=== PATIENT | female | born 1970 | race Caucasian/White ===

== ENCOUNTER → 2019-11-01 | Outpatient (CLI) | payer OTHER ==
[~2019-11-01] MED LIST: OMEP-218 PO; PROAAER10 INH; SIMV20TA22 PO
== END ==
LOC: M LABSMTC 10:15
PROVIDERS: ATTEND Anesthesiology
DX: Z11.59 Encounter for screening for other viral diseases (principal)

== ENCOUNTER 2019-11-04 11:01 | Day surgery (SDC) | payer OTHER ==
[~2019-11-04] VITALS: Ht 162.6 cm; Wt 72.6 kg
[~2019-11-04 11:01] MED LIST changes: +NS 1,000 ML IV SCH
[2019-11-04] MEDS ORDERED: propofoL 200 MG/20 ML VIAL As Ordered ONE (11:19)
[2019-11-04] MEDS ORDERED: fentaNYL 100 MCG/2 ML INJECTION (J3010) As Ordered ONE (11:19)
[2019-11-04] MEDS ORDERED: LIDOCAINE 2% 100MG/5ML SDV (FOR ANES.) As Ordered ONE (11:19)
--- NOTE | 2019-11-04 11:42 | ROOR ---
Patient Name: Jahaira Mark Procedure Date: 11/04/2019 11:29 AM Date of : 1970 Age: 49 Room: [facility] Gender: Female Note Status: Finalized Procedure: Upper GI endoscopy Indications: Iron deficiency anemia, Heartburn Providers: Juan MARQUEZ MD Referring MD: SHYAM KEITH MD Requesting Provider: Medicines: Monitored Anesthesia Care Complications: No immediate complications. Procedure: Pre-Anesthesia Assessment: - The heart rate, respiratory rate, oxygen saturations, blood pressure, adequacy of pulmonary ventilation, and response to care were monitored throughout the procedure. The Endoscope was introduced through the mouth, and advanced to the second part of duodenum. The upper GI endoscopy was accomplished without difficulty. The patient tolerated the procedure well. Findings: Non-severe esophagitis was found at the gastroesophageal junction. Biopsies were taken with a cold forceps for histology. The exam of the esophagus was otherwise normal. The entire examined stomach was normal. The examined duodenum was normal. Biopsies for histology were taken with a cold forceps for evaluation of celiac disease. Impression: - Non-severe esophagitis. Biopsied. - Normal stomach. - Normal examined duodenum. Biopsied. Recommendation: - Continue present medications. - Follow an antireflux regimen. - Telephone endoscopist for pathology results in 2 weeks. Juan Marquez MD Juan MARQUEZ MD 11/04/2019 11:42:36 AM Electronically signed by Juan MARQUEZ MD Number of Addenda: 0 Note Initiated On: 11/04/2019 11:29 AM Estimated Blood Loss: Estimated blood loss: none.
--- NOTE | 2019-11-04 12:10 | ROOR ---
Patient Name: Jahaira Mark Procedure Date: 11/04/2019 11:29 AM Date of : 1970 Age: 49 Room: [facility] Gender: Female Note Status: Finalized Procedure: Colonoscopy Indications: Iron deficiency anemia Providers: Juan MARQUEZ MD Referring MD: SHYAM KEITH MD Requesting Provider: Medicines: Monitored Anesthesia Care Complications: No immediate complications. Procedure: Pre-Anesthesia Assessment: - The heart rate, respiratory rate, oxygen saturations, blood pressure, adequacy of pulmonary ventilation, and response to care were monitored throughout the procedure. The Colonoscope was introduced through the anus and advanced to 10 cm into the ileum. The colonoscopy was performed without difficulty. The patient tolerated the procedure well. The quality of the bowel preparation was good. Findings: The perianal and digital rectal examinations were normal. A diminutive polyp was found in the sigmoid colon. The polyp was sessile. The polyp was removed with a cold snare. Resection and retrieval were complete. Small Internal Hemorrhoids. The exam was otherwise without abnormality on direct and retroflexion views. The terminal ileum appeared normal. Impression: - One diminutive polyp in the sigmoid colon, removed with a cold snare. Resected and retrieved. - A few scattered sigmoid and descending colon diverticula. (minimal diverticulosis) - Small Internal Hemorrhoids. - The colon examination was otherwise normal on direct and retroflexion views. - The examined portion of the ileum was normal. Recommendation: - Repeat colonoscopy in 5 years for surveillance. - Telephone endoscopist for pathology results in 2 weeks. Juan Marquez MD Juan MARQUEZ MD 11/04/2019 12:09:57 PM Electronically signed by Juan MARQUEZ MD Number of Addenda: 0 Note Initiated On: 11/04/2019 11:29 AM Estimated Blood Loss: Estimated blood loss: none.
[2019-11-04 12:25] VITALS: BP 122/75
== END 2019-11-04 13:05 | disposition home or self-care (01) ==
LOC: M OPP 11:01
PROVIDERS: ATTEND Internal Medicine Gastroenterology
DX: K63.5 Polyp of colon (principal); D50.9 Iron deficiency anemia, unspecified; K20.9 Esophagitis, unspecified; R12 Heartburn; Z79.899 Other long term (current) drug therapy
CPT/HCPCS: 43239; 45385; 88305; J3010

== ENCOUNTER → 2021-11-03 | Outpatient (CLI) | payer OTHER ==
[~2021-11-03] MED LIST changes: +METF500T13 PO; -NS 1,000 ML IV SCH; +OMEP-173 PO; -OMEP-218 PO; +SEMA2.4P SQ
== END ==
LOC: M LABSMTC 09:07
PROVIDERS: ATTEND Anesthesiology
DX: Z01.812 Encounter for preprocedural laboratory examination (principal); Z20.822 Contact with and (suspected) exposure to COVID-19

== ENCOUNTER → 2021-12-01 | Outpatient (CLI) | payer OTHER | LOC: M LABSMTC 09:12 | PROVIDERS: ATTEND Anesthesiology | DX: Z01.818 Encounter for other preprocedural examination (principal); Z11.52 Encounter for screening for COVID-19 ==

== ENCOUNTER 2021-12-06 08:46 | Day surgery (SDC) | payer OTHER ==
[~2021-12-06] VITALS: Ht 162.6 cm; Wt 69.4 kg
[2021-12-06] MEDS ORDERED: LR 1,000 ML IV SCH ×2 (09:40→12:05)
[2021-12-06] MEDS ORDERED: INSULIN LISPRO (NovoLOG) PER UNIT SC PRN (09:40)
[2021-12-06] MEDS ORDERED: LIDOCAINE W/EPINEPHRINE 1% 20ML VIAL As Ordered ONE (11:17)
[2021-12-06] MEDS ORDERED: COCAINE 4% 4ML NASAL SOLUTION BTL As Ordered ONE (11:18)
[2021-12-06] MEDS ORDERED: OXYMETAZOLINE 0.05% NASAL SPRAY (AFRIN) As Ordered ONE (11:18)
[2021-12-06] MEDS ORDERED: fentaNYL 250 MCG/5 ML INJECTION As Ordered ONE (11:43)
[2021-12-06] MEDS ORDERED: ONDANSETRON 4MG/2ML VIAL As Ordered ONE (11:43)
[2021-12-06] MEDS ORDERED: dexameTHASONE 4 MG/ML 1ML VIAL (J1100 PER 1MG) As Ordered ONE (11:43)
[2021-12-06] MEDS ORDERED: MIDAZOLAM INJ 2MG/2ML VIAL (J2250 PER 1MG) As Ordered ONE (11:43)
[2021-12-06] MEDS ORDERED: LIDOCAINE 2% 100MG/5ML SDV (FOR ANES.) As Ordered ONE (11:43)
[2021-12-06] MEDS ORDERED: PHENYLephrine 500MCG 5ML (100MCG/ML) SYRINGE As Ordered ONE (11:44)
[2021-12-06] MEDS ORDERED: oxyCODONE 5MG TAB PO PRN (12:05)
[2021-12-06] MEDS ORDERED: fentaNYL 100 MCG/2 ML INJECTION IV PRN (12:05)
[2021-12-06] MEDS ORDERED: MORPHINE 2 MG/ML 1ML VIAL IV PRN (12:05)
[2021-12-06] MEDS ORDERED: ONDANSETRON 4MG/2ML VIAL IV PRN ×2 (12:05→12:25)
[2021-12-06] MEDS ORDERED: ROCURONIUM BROMIDE 50 MG/5 ML VIAL As Ordered ONE (12:17)
[2021-12-06] MEDS ORDERED: propofoL 200 MG/20 ML VIAL As Ordered ONE (12:17)
[2021-12-06] MEDS ORDERED: ANEXSIA, NORCO 7.5MG/325MG TABLET(HYDROCODONE/APAP) PO PRN (12:25)
[2021-12-06] MEDS ORDERED: MORPHINE 10 MG/ML 1ML VIAL IV PRN (12:25)
[2021-12-06 13:10] VITALS: BP 137/82
== END 2021-12-06 13:15 | disposition home or self-care (01) ==
LOC: M SDC 08:46
PROVIDERS: ATTEND Otolaryngology
DX: J34.3 Hypertrophy of nasal turbinates (principal); E78.5 Hyperlipidemia, unspecified; R73.01 Impaired fasting glucose; K21.9 Gastro-esophageal reflux disease without esophagitis; G43.909 Migraine, unspecified, not intractable, without status migrainosus; Z79.84 Long term (current) use of oral hypoglycemic drugs; Z79.51 Long term (current) use of inhaled steroids; Z79.899 Other long term (current) drug therapy
CPT/HCPCS: 30802; 81025; C9046; J1100; J2250; J2370; J2405; J3010